=== PATIENT | male | born 1965 | race African-American/Black ===

== ENCOUNTER 2024-02-17 13:55 | Inpatient (IN) | payer OTHER ==
[~2024-02-17] VITALS: Ht 177.8 cm; Wt 153.8 kg
[2024-02-17] MEDS ORDERED: LORazepam 1 MG TAB PO PRN (18:10)
[2024-02-17] MEDS ORDERED: LORazepam 2 MG/ML VIAL IM PRN (18:10)
[2024-02-17] MEDS ORDERED: hydrOXYzine pamoate 25 MG CAP PO PRN (18:15)
[2024-02-17] MEDS ORDERED: Ziprasidone Mesylate 20 MG VIAL IM PRN (18:20)
[2024-02-17] MEDS ORDERED: Water, Sterile 10 ML VIAL IM PRN (18:20)
[2024-02-17] MEDS ORDERED: Magnesium Hydroxide 30 ML UDC PO PRN (18:40)
[2024-02-17 20:00] VITALS: BP 122/88
[2024-02-17] MEDS ORDERED: METHOCARBAMOL 500 MG TAB PO SCH (21:00)
[2024-02-17] MEDS ORDERED: Meropenem 1 GM in SODIUM CHLORIDE 0.9% 100 ML IV SCH ×2 (21:00→22:00)
[2024-02-17] MEDS ORDERED: RISPERIDONE 0.5 MG TAB PO SCH (21:00)
[2024-02-17] MEDS ORDERED: LATANOPROST 0.005% 2.5 ML BOTTLE OPH SCH (21:00)
[2024-02-17] MEDS ORDERED: NORTRIPTYLINE HYDROCHLORIDE PO ONE (21:00)
[2024-02-17] MEDS ORDERED: Cholecalciferol 2,000 UNIT TABLET (50 MCG) PO SCH (21:00)
[2024-02-17] MEDS ORDERED: GABAPENTIN 100 MG CAP PO SCH (21:00)
[2024-02-17] MEDS ORDERED: Meropenem 2 GM in SODIUM CHLORIDE 0.9% 100 ML IV SCH (22:00)
[2024-02-18 08:06] LABS: BASO % 0.5 % (0.0-1.0); EOS # 0.3 10*3/uL (0.0-0.4); EOS % 5.2 % (1.0-4.0); HEMATOCRIT 34.2 % (42.0-52.0); LYMPH % 17.9 % (27.0-41.0); MEAN CELL VOLUME 100.6 fl (80.0-94.0); MEAN CORPUSCULAR HGB 32.4 pg (27.0-31.0); MEAN CORPUSCULAR HGB CONC 32.2 g/dl (33.0-37.0); MEAN PLATELET VOLUME 9.5 fl (9.6-12.3); MONO # 0.5 10*3/uL (0.1-1.0); MONO % 8.2 % (3.0-9.0); NEUT # 3.9 10*3/uL (2.3-7.9); NEUT % 67.9 % (47.0-73.0); PLATELET COUNT AUTOMATED 133 10*3/uL (130-400); RED CELL DISTRI WIDTH 14.7 % (0-14.5); WHITE BLOOD COUNT 5.8 10*3/uL (4.8-10.8)
[2024-02-18 08:26] LABS: POTASSIUM 4.2 mmol/L (3.4-5.1); TOTAL PROTEIN 6.6 gm/dL (6.0-8.0)
[2024-02-18] MEDS ORDERED: Tamsulosin Hydrochloride 0.4 MG CAP PO SCH (09:00)
[2024-02-18] MEDS ORDERED: METOPROLOL SUCCINATE XR 50 MG TAB PO SCH (09:00)
[2024-02-18] MEDS ORDERED: LITHIUM CARBONATE 450 MG TAB PO SCH (09:00)
[2024-02-18] MEDS ORDERED: FERROUS SULFATE 325 MG TAB PO SCH (09:00)
[2024-02-18] MEDS ORDERED: OZEMPIC 0.25 MG SC SCH (09:00)
[2024-02-18] MEDS ORDERED: MULTIVITAMIN 1 TAB TAB PO SCH (09:00)
[2024-02-18] MEDS ORDERED: BUMETANIDE 1 MG TAB PO SCH (09:00)
[2024-02-18] MEDS ORDERED: OMEPRAZOLE 20 MG CAP PO SCH (09:00)
[2024-02-18] MEDS ORDERED: ASPIRIN, CHEWABLE 81 MG TAB PO SCH (09:00)
[2024-02-18] MEDS ORDERED: buPROPion XL 150 MG TAB PO SCH (09:00)
[2024-02-18] MEDS ORDERED: RIVAROXABAN 20 MG TAB PO SCH (09:00)
[2024-02-18 09:17] VITALS: BP 124/72
[2024-02-18] MEDS ORDERED: Ertapenem Sodium 1 GM in SODIUM CHLORIDE 0.9% 50 ML IV SCH (13:00)
[2024-02-18] MEDS ORDERED: hydrOXYzine pamoate 25 MG CAP PO SCH (18:00)
[2024-02-18] MEDS ORDERED: FLUCONAZOLE 150 MG TAB PO PRN (18:30)
[2024-02-18] MEDS ORDERED: OZEMPIC0.25 MG/03 SQ (18:57)
[2024-02-18 20:00] VITALS: BP 138/92
[2024-02-18] MEDS ORDERED: CARIPRAZINE HCL 1.5 MG CAPSULE PO SCH (21:00)
[2024-02-18] MEDS ORDERED: NYSTATIN 15 GM BOT T SCH (21:00)
[2024-02-19 08:00] VITALS: BP 139/71
[2024-02-19 10:15] LABS: BASO % 0.5 % (0.0-1.0); EOS # 0.5 10*3/uL (0.0-0.4); EOS % 6.7 % (1.0-4.0); LYMPH % 12.9 % (27.0-41.0); MEAN CORPUSCULAR HGB 32.3 pg (27.0-31.0); MEAN PLATELET VOLUME 9.5 fl (9.6-12.3); MONO # 0.4 10*3/uL (0.1-1.0); MONO % 4.9 % (3.0-9.0); NEUT # 5.8 10*3/uL (2.3-7.9); NEUT % 74.7 % (47.0-73.0); PLATELET COUNT AUTOMATED 162 10*3/uL (130-400); RED BLOOD COUNT 3.96 10*6/uL (4.50-5.90); RED CELL DISTRI WIDTH 14.6 % (0-14.5); WHITE BLOOD COUNT 7.8 10*3/uL (4.8-10.8)
[2024-02-19 10:34] LABS: POTASSIUM 4.6 mmol/L (3.4-5.1); TOTAL PROTEIN 7.7 gm/dL (6.0-8.0)
[2024-02-19 15:40] LABS: BILIRUBIN Negative (Negative); BLOOD 2+ (Negative); CLARITY Cloudy (Clear); COLOR Yellow (Yellow); GLUCOSE Trace (Negative); KETONE Negative (Negative); LEUKO ESTERASE 2+ (Negative); NITRITE Negative (Negative)
[2024-02-19 15:52] LABS: BACTERIA 1+; RBC 21-30 rbc/hpf (0-2); WBC 16-20 wbc/hpf (0-5)
[2024-02-19 15:53] LABS: EPITHELIAL CELLS 0-2
[2024-02-19 20:00] VITALS: BP 125/82
[2024-02-19] MEDS ORDERED: FLUCONAZOLE 150 MG TAB PO SCH (21:00)
[2024-02-20 08:08] VITALS: BP 122/91
[2024-02-20 20:00] VITALS: BP 125/83
[2024-02-20] MEDS ORDERED: CARIPRAZINE HCL 3 MG CAPSULE PO SCH (21:00)
[2024-02-21 08:19] VITALS: BP 122/78
[2024-02-21 20:00] VITALS: BP 129/91
[2024-02-21] MEDS ORDERED: RAMELTEON 8 MG TAB PO SCH (21:00)
[2024-02-22 08:00] VITALS: BP 138/78
[2024-02-22 20:00] VITALS: BP 116/87
[2024-02-23 06:41] LABS: TOTAL PROTEIN 6.6 gm/dL (6.0-8.0)
[2024-02-23 08:00] VITALS: BP 127/86
[2024-02-23] MEDS ORDERED: VITAMIN D350 MCG PO (12:44)
[2024-02-23] MEDS ORDERED: MASON NATURAL325 MG PO (12:44)
[2024-02-23] MEDS ORDERED: TAB-A-VITE TA400 MCG PO (12:44)
[2024-02-23] MEDS ORDERED: ASPIRIN CHILDRE81 MG PO (12:44)
[2024-02-23] MEDS ORDERED: LATANOPROST2.5 ML OPH (12:44)
[2024-02-23] MEDS ORDERED: BUMETANIDE1 MG PO (12:44)
[2024-02-23] MEDS ORDERED: GABAPENTIN100 M2 PO (12:44)
[2024-02-23] MEDS ORDERED: TAMSULOSIN HCL0.4 MG PO (12:44)
[2024-02-23] MEDS ORDERED: METOPROLOL SUCC50 M1 PO (12:44)
[2024-02-23] MEDS ORDERED: FLUONAZOLE150 M1 PO (12:44)
[2024-02-23] MEDS ORDERED: XARE20MG PO (12:44)
[2024-02-23 20:00] VITALS: BP 134/82
[2024-02-23] MEDS ORDERED: Albuterol Sulf/Ipratropium 3 ML VIAL NEB ONE (23:05)
[2024-02-24] MEDS ORDERED: RAMELTEON8 MG PO (06:33)
[2024-02-24] MEDS ORDERED: VRAYLAR3 MG PO (06:33)
[2024-02-24] MEDS ORDERED: HYDROXYZINE PAM25 M1 PO (06:33)
[2024-02-24] MEDS ORDERED: LITHIUM CARBON450 M1 PO (06:33)
[2024-02-24 07:38] LABS: POTASSIUM 4.6 mmol/L (3.4-5.1)
[2024-02-24 08:00] VITALS: BP 107/57
== END 2024-02-24 13:05 | DRG 885 ==
LOC: 3N 13:55
PROVIDERS: Counselor Professional; Internal Medicine; Nurse Practitioner; ADMIT Psychiatry & Neurology Psychiatry; ATTEND Psychiatry & Neurology Psychiatry
PROC: GZHZZZZ Group Psychotherapy (ICD-10-PCS; principal; 2024-02-18)
PROC: GZ56ZZZ Individual Psychotherapy, Supportive (ICD-10-PCS; 2024-02-18)
DX: F25.0 Schizoaffective disorder, bipolar type (principal); N18.9 Chronic kidney disease, unspecified; N17.0 Acute kidney failure with tubular necrosis; N39.0 Urinary tract infection, site not specified; I50.32 Chronic diastolic (congestive) heart failure; I13.0 Hypertensive heart and chronic kidney disease with heart failure and stage 1 through stage 4 chronic kidney disease, or unspecified chronic kidney disease; F23 Brief psychotic disorder; Z16.12 Extended spectrum beta lactamase (ESBL) resistance; I48.20 Chronic atrial fibrillation, unspecified; Z68.42 Body mass index [BMI] 45.0-49.9, adult; E11.22 Type 2 diabetes mellitus with diabetic chronic kidney disease; B96.4 Proteus (mirabilis) (morganii) as the cause of diseases classified elsewhere; D64.9 Anemia, unspecified; L80 Vitiligo; F12.10 Cannabis abuse, uncomplicated; E66.01 Morbid (severe) obesity due to excess calories; I25.10 Atherosclerotic heart disease of native coronary artery without angina pectoris; F41.1 Generalized anxiety disorder; K21.9 Gastro-esophageal reflux disease without esophagitis; E78.5 Hyperlipidemia, unspecified; G47.33 Obstructive sleep apnea (adult) (pediatric); Z83.3 Family history of diabetes mellitus; Z88.8 Allergy status to other drugs, medicaments and biological substances; Z91.09 Other allergy status, other than to drugs and biological substances